=== PATIENT | male | born 1975 ===

== ENCOUNTER 2022-08-09 05:06 | Emergency (ER) | payer OTHER ==
[2022-08-09] MEDS ORDERED: ASPIRIN 325 MG TABLET PO ONE (05:25)
[2022-08-09] MEDS ORDERED: TICAGRELOR 90 MG TABLET PO ONE ×2 (05:25→05:26)
[2022-08-09] MEDS ORDERED: ASPIRIN 81 MG CHEWABLE TABLETS ONE (05:26)
[2022-08-09] MEDS ORDERED: TICAGRELOR 60 MG TABLET PO ONE (05:26)
[2022-08-09] MEDS ORDERED: HEPARIN NA (PORCINE) 5,000 UNITS/ML 1ML VIAL IVPUSH ONE ×2 (05:28→05:30)
[2022-08-09] MEDS ORDERED: HEPARIN NA (PORCINE) 5,000 UNITS/ML 1ML VIAL IVPUSH PRN ×4 (05:28)
[2022-08-09] MEDS ORDERED: HEPARIN INFUSION - 25,000 UNITS/500 ML INFUS.BAG IVPB ONE (05:29)
[2022-08-09] MEDS ORDERED: HEPARIN SOD,PORK IN 0.45% NACL 25,000 UNIT/500 ML INFUS.BAG IVPB SCH (05:30)
[2022-08-09] MEDS ORDERED: HEPARIN INFUSION - 25,000 UNITS/500 ML INFUS.BAG IVPB SCH (05:30)
[2022-08-09] MEDS ORDERED: SODIUM CHLORIDE 0.9% 500 ML INFUS.BAG IV ONE (05:31)
[2022-08-09] MEDS ORDERED: morphine SULFATE 4 MG/ML VIAL IM ONE (05:32)
[2022-08-09] MEDS ORDERED: ONDANSETRON *ODT* 4 MG TABLET SL ONE (05:32)
[2022-08-09 05:33] VITALS: TEMP 98.9; BMI 24.3
[2022-08-09] MEDS ORDERED: NITROGLYCERIN 2% OINTMENT - 1GM PACKET TD ONE (05:44)
[2022-08-09] MEDS ORDERED: NITROGLYCERIN 25MG/D5W 250ML 25 MG/250 ML ML IVPB SCH (05:45)
[2022-08-09 05:46] VITALS: RESP 28
[2022-08-09] MEDS ORDERED: NITROGLYCERIN SUBLINGUAL 1/150 0.4 MG TAB SL ONE ×2 (05:46→05:47)
[2022-08-09 06:05] VITALS: BP 123/90; PULSE 85
[2022-08-09 06:22] LABS: INR 0.93 (0.83-1.09); PROTHROMBIN TIME (PATIENT) 10.8 SEC (9.7-13.0)
[2022-08-09 06:25] LABS: ACTIVATED PTT 26.2 SECONDS (25.2-36.5)
[2022-08-09 06:44] LABS: BASO % 0.6 % (0-2.0); HEMATOCRIT 42.8 % (35.4-49); HEMOGLOBIN 15.4 GM/dL (11.7-16.9); LYMPH % 51.1 % (8-40); MCH 31.1 pg (25.7-33.7); MCHC 35.9 g/dl (32.0-35.9); MEAN CELL VOLUME 86.8 fl (80-96); MEAN PLT VOLUME 9.6 fl (7.5-11.1); MONO % 9.1 % (3.8-10.2); NEUT % 37.2 % (42.8-82.8); PLATELET COUNT 212 10^3/uL (134-434); RBC 4.94 M/mm3 (4.00-5.60); WHITE BLOOD COUNT 8.1 K/mm3 (4.0-10.0)
[2022-08-09 06:48] LABS: CALCIUM 9.7 mg/dL (8.5-10.1)
[2022-08-09 06:49] LABS: ALBUMIN 4.4 g/dl (3.4-5.0); BLOOD UREA NITROGEN 15.8 mg/dL (7-18)
[2022-08-09 06:52] LABS: CREATININE 1.2 mg/dL (0.55-1.3)
[2022-08-09 06:54] LABS: BILIRUBIN,TOTAL 0.4 mg/dL (0.2-1); TOT PROT 8.2 g/dl (6.4-8.2)
== END 2022-08-09 06:08 | disposition short-term general hospital (02) ==
LOC: EDBD 05:06 → JER 05:06
PROC: 3E033GC Introduction of Other Therapeutic Substance into Peripheral Vein, Percutaneous Approach (ICD-10-PCS; principal; 2022-08-09)
PROC: 3E033GC Introduction of Other Therapeutic Substance into Peripheral Vein, Percutaneous Approach (ICD-10-PCS; 2022-08-09)
PROC: 3E023GC Introduction of Other Therapeutic Substance into Muscle, Percutaneous Approach (ICD-10-PCS; 2022-08-09)
DX: I21.3 ST elevation (STEMI) myocardial infarction of unspecified site (principal); R07.9 Chest pain, unspecified
CPT/HCPCS: 36415; 71045-TC-FY; 80053; 84484; 85025; 85610; 85730; 86850; 86900; 86901; 93005; 93010; 99285-25; J1644; Q0162